=== PATIENT | female | born 1970 | race African-American/Black ===

== ENCOUNTER 2023-07-24 04:33 | Emergency (ER) | payer MEDICAID ==
[~2023-07-24] VITALS: Ht 172.7 cm; Wt 86.0 kg
[2023-07-24 04:36] VITALS: O2SAT 99
[2023-07-24] MEDS ORDERED: LEVO1.5T37 MT (05:59)
[2023-07-24] MEDS ORDERED: AZITHROMYCIN 500 MG TABLET PO ONE (06:00)
[2023-07-24] MEDS ORDERED: CEFTRIAXONE SODIUM 500 MG/VIAL IM ONE (06:00)
[2023-07-24 06:22] LABS: CLARITY URINE CLEAR (CLEAR); COLOR URINE YELLOW (YELLOW); GLUCOSE URINE NEGATIVE (NEGATIVE); KETONES URINE NEGATIVE (NEGATIVE); LEUKOCYTE ESTERASE URINE NEGATIVE (NEGATIVE); NITRITE URINE NEGATIVE (NEGATIVE); OCCULT BLOOD URINE 3+ (NEGATIVE); PH URINE 6.5 (4.5-8.0); PROTEIN URINE NEGATIVE (NEGATIVE); SPECIFIC GRAVITY URINE 1.019 (1.005-1.030)
[2023-07-24 06:24] LABS: BACTERIA URINE NONE SEEN; SQUAMOUS EPITHELIAL CELL URINE 1+ /lpf (RARE/1+); WBC URINE NONE SEEN /hpf (0-2); YEAST URINE NONE SEEN
[2023-07-24 06:48] LABS: RBC URINE 0-2 /hpf (0-2)
[2023-07-24 07:27] VITALS: BP 149/90; PULSE 79; RESP 16; TEMP 97.9
[2023-07-28 04:11] LABS: CHLAMYDIA TRACHOMATIS NAA Negative (Negative); NEISSERIA GONORRHOEAE NAA Negative (Negative)
== END 2023-07-24 08:09 | disposition home or self-care (01) ==
LOC: ER 04:33
DX: Z11.3 Encounter for screening for infections with a predominantly sexual mode of transmission (principal)
CPT/HCPCS: 87491; 87591; 81003; 81025; 96372; 99283; J0696; Z7610